=== PATIENT | male | born 1980 | race Caucasian/White ===

== ENCOUNTER → 2017-04-15 | Outpatient (CLI) | payer OTHER | LOC: MHCPAIN 10:27 | DX: G89.29 Other chronic pain (principal); M47.27 Other spondylosis with radiculopathy, lumbosacral region; F17.200 Nicotine dependence, unspecified, uncomplicated | CPT/HCPCS: G0463 ==

== ENCOUNTER → 2017-04-17 | Outpatient (CLI) | payer OTHER | LOC: MHCPAIN 10:53 | DX: M47.817 Spondylosis without myelopathy or radiculopathy, lumbosacral region (principal); M48.07 Spinal stenosis, lumbosacral region | CPT/HCPCS: J1100; Q9967 ==

== ENCOUNTER → 2017-05-02 | Outpatient (CLI) | payer OTHER | LOC: MHCPAIN 11:16 | DX: G89.29 Other chronic pain (principal); M47.27 Other spondylosis with radiculopathy, lumbosacral region; F17.200 Nicotine dependence, unspecified, uncomplicated | CPT/HCPCS: G0463 ==